=== PATIENT | male | born 1960 | race Caucasian/White ===

== ENCOUNTER → 2017-06-06 | Outpatient (CLI) | payer OTHER, MEDICARE ==
--- NOTE | ~2017-06-06 | CR72 ---
[facility] A Service of [facility] RADIOLOGY TEXT RESULTS PATIENT: PEDRO FRANZ [facility] 62 UNIT #: [id number] AGE: [address]: Mg Stuart MD SEX: M ORDER DR: [id number] [facility] [address]. [place], [place] [address] [id number] O MR#: [id number] Acc #: [id number] NAME: PEDRO FRANZ : 1960 SEX: M STUDY DATE/TIME: 06/06/2017 11:14 UNIT: [facility] ROOM: STUDY DESCRIPTION: CR Chest Single View Portable Attending Physician: Mg Stuart M.D. Referring Physician: Mg Stuart M.D. Ordering Physician: Dontae Duarte M.D. Primary Care Physician: Pete Sarabia M.D. MEDICAL IMAGING REPORT This report is preliminary unless electronic signature is present EXAM Portable chest x-ray 06/06/2017 HISTORY Status post thoracentesis. FINDINGS AP radiograph of the chest is presented. Comparison to a chest CT 06/06/2017. Patient appears to be status post right thoracentesis. No significant residual right pleural effusion. Minimal linear atelectasis or scarring at the right lung base. Lungs are otherwise clear bilaterally. No left effusion is seen. No pneumothorax. Stable mild cardiac enlargement. Dictated by... Miguel Angel Maher M.D. THIS IS AN ELECTRONICALLY VERIFIED REPORT Miguel Angel Maher M.D. at 06/07/2017 6:15 PM VINCENT/delvin TD: 06/06/2017 15:58 JOB #: [id number] MEDICAL IMAGING REPORT Page 1 of 1 COPY
--- NOTE | ~2017-06-06 | XA203 ---
[facility] A Service of [facility] RADIOLOGY TEXT RESULTS PATIENT: PEDRO FRANZ LOCATION: [facility] : 62 UNIT #: [id number] AGE: [address]: Mg Stuart MD SEX: M ORDER DR: [id number] [facility]. [place], [place] [address] [id number] O MR#: [id number] Acc #: [id number] NAME: PEDRO FRANZ : 1960 SEX: M STUDY DATE/TIME: 06/06/2017 10:50 UNIT: [facility] ROOM: STUDY DESCRIPTION: XA Thoracentesis Attending Physician: Mg Stuart M.D. Referring Physician: Mg Stuart M.D. Ordering Physician: Mg Stuart M.D. Primary Care Physician: Pete Sarabia M.D. MEDICAL IMAGING REPORT This report is preliminary unless electronic signature is present EXAM Ultrasound-guided thoracentesis. HISTORY Right-sided pleural effusion of uncertain etiology. Shortness of breath. Evaluate fluid for laboratory analysis. TECHNIQUE The procedure was explained to the patient including risks, benefits and complications. Informed consent was obtained and a formal time-out procedure was utilized. A sterile technique was utilized with the prepping of the skin with ChloraPrep and sterile drapes. Prior to prepping the skin, an appropriate site was marked using ultrasound for guidance. Ultrasound was not used during the procedure, itself, in a real-time fashion. Using sterile technique, and following local anesthesia with 1% Xylocaine, a sheath needle was placed into the pleural fluid collection on the right. A total of 2150 mL of fluid was aspirated. Some of the fluid was sent for laboratory analysis as requested by the ordering service. The patient tolerated the procedure well. A chest x-ray will be obtained following thoracentesis to evaluate for pneumothorax with results reported separately. IMPRESSION Technically successful right thoracentesis with 2150 mL of fluid obtained. Chest x-ray pending. Dictated by... Dontae Duarte M.D. THIS IS AN ELECTRONICALLY VERIFIED REPORT [facility] A Service of [facility] RADIOLOGY TEXT RESULTS PATIENT: PEDRO FRANZ [facility] : 62 UNIT #: [id number] AGE: [address]: Mg Stuart MD SEX: M ORDER DR: Dontae Duarte M.D. at 06/07/2017 4:43 PM CHRIS/ledy TD: 06/06/2017 19:51 JOB #: [id number] MEDICAL IMAGING REPORT Page 1 of 1 COPY
--- NOTE | ~2017-06-06 | CT57 ---
[facility] A Service of [facility] RADIOLOGY TEXT RESULTS PATIENT: PEDRO FRANZ LOCATION: [facility] : 62 UNIT #: [id number] AGE: [address]: Mg Stuart MD SEX: M ORDER DR: [id number] [facility]. [place], [place] [address] [id number] O MR#: [id number] Acc #: [id number] NAME: PEDRO FRANZ : 1960 SEX: M STUDY DATE/TIME: 06/06/2017 10:39 UNIT: [facility] ROOM: STUDY DESCRIPTION: CT Chest Wo Cont Attending Physician: Mg Stuart M.D. Referring Physician: Mg Stuart M.D. Ordering Physician: Mg Stuart M.D. Primary Care Physician: Pete Sarabia M.D. MEDICAL IMAGING REPORT This report is preliminary unless electronic signature is present EXAM CT chest. INDICATION Pleural effusion. Shortness of air for 5-[address] of the chest without contrast. Coronal and sagittal reconstructions were obtained. This CT exam was performed with one or more of the following radiation dose reduction techniques: automatic exposure control, adjustment of mA and/or kV according to patient size, and iterative reconstruction. COMPARISON Chest radiograph dated 03/08/2014. FINDINGS There is a large right pleural effusion. This measures up to 11 cm in maximal depth. This results in some atelectasis of the right upper lobe and right lower lobe. The left lung is clear. Central airways are patent. The thoracic aorta is normal in caliber. Main pulmonary artery is borderline enlarged at 3.0 cm. No pericardial effusion. Limited imaging in the upper abdomen was obtained. The liver is morphologically cirrhotic. There is a small volume of ascites. Gallstones layer dependently in the gallbladder. There is mild gynecomastia. IMPRESSION 1. A large right pleural effusion. [facility] A Service of [facility] & [facility] RADIOLOGY TEXT RESULTS PATIENT: PEDRO FRANZ LOCATION: [facility] : 62 UNIT #: [id number] AGE: [address]: Mg Stuart MD SEX: M ORDER DR: 2. Atelectasis in portions of the right upper lobe and right lower lobe due to the large effusion. 3. Cirrhotic liver with a small volume of ascites. 4. Cholelithiasis. Dictated by... Adam Hunter M.D. THIS IS AN ELECTRONICALLY VERIFIED REPORT Adam Hunter M.D. at 06/06/2017 4:26 PM FRANCIA/diana TD: 06/06/2017 15:03 JOB #: [id number] MEDICAL IMAGING REPORT Page 1 of 1 COPY
[2017-06-06 10:12] LABS: HEMATOCRIT 43.8 % (38.0-50.0); HEMOGLOBIN 14.1 gm/dL (13.0-16.0); MEAN CELL VOLUME 82.4 FL (83-96); MEAN CORPUSCULAR HEMOGLOBIN 26.5 PG (28-34); MEAN CORPUSCULAR HGB CONC 32.2 g/dL (30-36); MEAN PLATELET VOLUME 8.6 FL (6.5-11.5); RED BLOOD COUNT 5.32 X10e (3.90-5.60); RED CELL DISTRIBUTION WIDTH 17.3 % (11.0-15.5); WHITE BLOOD COUNT 5.7 X10e3 (4.0-10.5)
[2017-06-06 10:27] LABS: INR 1.2; PARTIAL THROMBOPLASTIN TIME 25.4 SECONDS (23.5-31.3); PROTHROMBIN TIME (PATIENT) 12.9 SECONDS (10.0-11.7)
[2017-06-06 12:30] LABS: PROTEIN, BODY FLUID 3.3 gm/dL
[2017-06-06 12:36] LABS: BODY FLUID SOURCE THORACENTESIS
[2017-06-06 12:39] LABS: BF TOTAL NUCLEATED CELL COUNT 376 CMM (0-100); BODY FLUID APPEARANCE CLEAR; BODY FLUID RBC <10000 CMM
== END | disposition home or self-care (01) ==
LOC: CCAT 09:15 → CLAB 09:15 → CCAT 09:40 → CIVR 11:00
PROVIDERS: Internal Medicine
PROC: 0W993ZZ Drainage of Right Pleural Cavity, Percutaneous Approach (ICD-10-PCS; principal; 2017-06-06)
DX: J90 Pleural effusion, not elsewhere classified (principal); J98.11 Atelectasis; K74.60 Unspecified cirrhosis of liver; R18.8 Other ascites; K80.20 Calculus of gallbladder without cholecystitis without obstruction; I51.7 Cardiomegaly
CPT/HCPCS: 36415; 71010; 71250; 82945; 83615; 84157; 85027; 85610; 85730; 87070; 87102; 87116; 87205; 87206; 88108; 88305; 89051